=== PATIENT | female | born 1960 | race Caucasian/White ===

== ENCOUNTER 2021-02-04 16:14 | Inpatient (IN) ==
--- NOTE | 2021-02-04 16:23 | Emergency Department Note ---
Impression & Plan Elevated troponin Admit ED Provider Note HPI: The patient is a 60-year-old female who presents the emergency department with a chief complaint of myalgias and worsening shortness of breath over the past 12 to 14 days. Patient states she was positive for COVID-19 via a home test that she did on 24 January. She states that during this time. She has had generalized myalgias, states she feels short of breath at baseline. States that she has had some subjective fevers at home. She presents today to the emergency department due to worsening shortness of breath and myalgias. On my initial assessment the patient has some mild increased work of breathing, she is s aturating well on room air. She is mildly tachycardic but otherwise hemodynamically stable. ROS: -MSK: Myalgias -Pulmonary: Dyspnea, COVID-19 positive *10 point review systems was conducted and is otherwise negative unless stated above *Outpatient medications and allergy history reviewed PE: General: Morbidly obese, alert, NAD HEENT: Normocephalic, atraumatic, trachea midline Eyes: Extraocular eye movement is intact, no scleral erythema Pulmonary: Slightly diminished bilaterally without any wheezing or crackles Cardio: Mildly tachycardic rate with regular rhythm GI: Abdomen is soft, nontender : No suprapubic tenderness MSK: No evidence of trauma or malformation of the extremities, no edema Skin: No evidence of rash Neuro: Alert, no focal deficits Psychiatric: Cooperative bus monitor: Order placed, patient is noted to be in sinus rhythm on the monitor EKG: Time: 1720 Rate: 101 Rhythm: Sinus tachycardia Intervals: Within normal limits ST changes: No ST elevation Medical Decision Making: Patient presented to the emergency department with a chief complaint of shortness of breath. She states that she tested positive for COVID-19 about 11 days ago. She denies any chest pain. On arrival she has some diminished bilateral breath sounds but is saturating at 92% on room air, abdomen is soft and nontender, she exhibits some mild increased work of breathing. COVID-19 testing was repeated and is positive, CT angiography of the chest was performed and does not show any evidence of pulmonary embolism but does show evidence of viral pneumonia. Patient's oxygen saturations did dip down to 90% on room air with increased work of breathing therefore she was placed on nasal cannula oxygen, 2 L, with good improvement in her oxygen saturations. She was given a dose of Decadron in the ED. Troponin did result at 0.18, patient does not have any chest pain, EKG does not show any acute ischemic changes. I suspect this is demand ischemia related to the patient's increased work of breathing and hypoxia. I discussed above findings with the patient, she was g iven aspirin in the ED, she will be admitted to a telemetry bed for further management. Patient was in agreement to the above plan and she was admitted in stable condition. * Diagnosis: NSTEMI, COVID-19, acute respiratory failure secondary to COVID-19 pneumonia * Disposition: Admission * CRITICAL CARE TIME: 45min -Management of acute respiratory failure with oxygen saturations at 90% on room air with increased work of breathing requiring supplemental oxygen, management of elevated troponin/NSTEMI interpretation of diagnostic studies, time spent at the bedside, discussion with other healthcare providers Stanislaw Chu DO Emergency Medicine Past Med/Surg History Social History Smoking Status: Never smoker Preferred Language: Icelandic Feels Safe at Home: Yes Allergies Allergies Allergy/AdvReac Type Severity Reaction Status Date / Time cobalt Allergy Unknown rash Unverified 02/04/21 18:09 cyanocobalamin (vitamin B12) Allergy Unknown rash Unverified 02/04/21 18:09 nickel Allergy Unknown rash Unverified 02/04/21 18:09 Home Meds Home Medications Medication Instructions Recorded Confirmed atorvastatin 20 mg tablet 0 mg PO HS 02/04/21 02/04/21 fluticasone 250 mcg-salmeterol 50 1 inh INHALATION BID 02/04/21 02/04/21 mcg/dose blistr powdr for inhalation (Advair Diskus) hydrochlorothiazide 25 mg tablet 0 mg PO DAILY 02/04/21 02/04/21 levothyroxine 75 mcg tablet 75 mcg PO QAM 02/04/21 02/04/21 (Synthroid) metoprolol succinate 25 mg 0 mg PO DAILY 02/04/21 02/04/21 tablet,extended release 24 hr omeprazole 20 mg tablet,delayed 20 mg PO HS 02/04/21 02/04/21 release Results & Data (ED) Vital Signs Vital Signs - 24 hr 02/04/21 16:19 02/04/21 17:32 02/04/21 17:35 Temperature 36.1 C L Temperature Source Temporal Artery Scan Pulse Rate 111 H 100 H Pulse Rate [Apical] 74 Pulse Rate from SpO2 Sensor 100 H Pulse Rhythm Regular Pulse Rhythm [Apical] Regular Pulse Strength Normal Pulse Strength [Apical] Normal Respiratory Rate 20 19 18 Respiratory Effort / Characteristics Non-Labored Spontaneous Non-Labored Respiratory Depth Normal Normal Respiratory Pattern Regular Blood Pressure 120/76 Blood Pressure [Left Arm] 150/89 H Blood Pressure Mean 90 Blood Pressure Mean [Left Arm] 109 Blood Pressure Position Sitting Pulse Oximetry 92 90 91 Oxygen Delivery Method Room Air Room Air Oxygen Flow Rate Sepsis Recent Fever Within 48 Hours No Sepsis New/Unexplained Change in Mental Status No Sepsis Action Taken by Nursing No Action Required 02/04/21 17:50 02/04/21 18:00 02/04/21 18:07 Temperature Temperature Source Pulse Rate 94 H Pulse Rate [Apical] Pulse Rate from SpO2 Sensor 94 H Pulse Rhythm Pulse Rhythm [Apical] Pulse Strength Pulse Strength [Apical] Respiratory Rate 19 Respiratory Effort / Characteristics Non-Labored Respiratory Depth Normal Respiratory Pattern Regular Blood Pressure Blood Pressure [Left Arm] Blood Pressure Mean Blood Pressure Mean [Left Arm] Blood Pressure Position Pulse Oximetry 90 91 92 Oxygen Delivery Method Room Air Room Air Oxygen Flow Rate 0 Sepsis Recent Fever Within 48 Hours Sepsis New/Unexplained Change in Mental Status Sepsis Action Taken by Nursing 02/04/21 18:30 02/04/21 19:00 02/04/21 19:30 Temperature Temperature Source Pulse Rate 90 90 Pulse Rate [Apical] Pulse Rate from SpO2 Sensor 89 91 H 90 Pulse Rhythm Pulse Rhythm [Apical] Pulse Strength Pulse Strength [Apical] Respiratory Rate 19 22 Respiratory Effort / Characteristics Respiratory Depth Respiratory Pattern Blood Pressure 117/90 145/90 H Blood Pressure [Left Arm] Blood Pressure Mean 99 108 Blood Pressure Mean [Left Arm] Blood Pressure Position Pulse Oximetry 96 95 97 Oxygen Delivery Method Oxygen Flow Rate Sepsis Recent Fever Within 48 Hours Sepsis New/Unexplained Change in Mental Status Sepsis Action Taken by Nursing Laboratory Data Result diagrams: 02/04/21 17:30 02/04/21 17:30 Lab Results 02/04/21 02/04/21 02/04/21 Range/Units 17:30 17:30 17:30 WBC 5.20 (4.8-10.8) K/uL RBC 4.38 (4.2-5.4) M/uL Hgb 12.4 (12.0-16.0) g/dL Hct 38.3 (37-47) % MCV 87.4 (80-100) fL MCH 28.3 (25-34) pg MCHC 32.4 (32-36) g/dL RDW Std Deviation 46.5 H (36.4-46.3) fL RDW Coeff of Ta 14.4 (11.5-14.5) % Plt Count 195 (130-400) K/uL MPV 10.3 (7.4-10.4) fL Immature Gran % (Auto) 0.2 % Neut % (Auto) 83.2 % Lymph % (Auto) 10.8 % [place] % (Auto) 5.6 % Eos % (Auto) 0.0 % Baso % (Auto) 0.2 % Neut # (Auto) 4.33 (1.4-6.5) K/uL Lymph # (Auto) 0.56 L (1.2-3.4) K/uL [place] # (Auto) 0.29 (0.11-0.59) K/uL Eos # (Auto) 0.00 (0-0.5) K/uL Baso # (Auto) 0.01 (0-0.2) K/uL Immature Gran # (Auto) 0.01 (0.00-0.02) K/uL Sodium 136 (136-145) mmol/L Potassium 3.2 L (3.5-5.1) mmol/L Chloride 100 (98-107) mmol/L Carbon Dioxide 31 (21-32) mmol/L Anion Gap 5.0 (3-11) BUN 14 (7-18) mg/dl Creatinine 1.07 (0.6-1.2) mg/dl Est Cr Clr Drug Dosing Not Reportable Est GFR ( Amer) 65.3 ml/min Est GFR (Non-Af Amer) 56.4 ml/min BUN/Creatinine Ratio 12.7 (10-20) Glucose 129 H (70-99) mg/dl Calcium 8.4 L (8.5-10.1) mg/dl Total Bilirubin 0.8 (0.2-1) mg/dl AST 54 H (15-37) U/L ALT 35 (12-78) U/L Alkaline Phosphatase 84 (45-117) U/L Troponin I 0.180 H* (0-0.045) ng/ml Total Protein 7.6 (6.4-8.2) gm/dl Albumin 2.8 L (3.4-5.0) gm/dl Globulin 4.8 H (2.5-4.0) gm/dl Albumin/Globulin Ratio 0.6 L (0.9-2) COVID-19 Eval Order Covid19 at [facility] SARS-CoV-2 (PCR) (Negative) 02/04/21 Range/Units 17:30 WBC (4.8-10.8) K/uL RBC (4.2-5.4) M/uL Hgb (12.0-16.0) g/dL Hct (37-47) % MCV (80-100) fL MCH (25-34) pg MCHC (32-36) g/dL RDW Std Deviation (36.4-46.3) fL RDW Coeff of Ta (11.5-14.5) % Plt Count (130-400) K/uL MPV (7.4-10.4) fL Immature Gran % (Auto) % Neut % (Auto) % Lymph % (Auto) % [place] % (Auto) % Eos % (Auto) % Baso % (Auto) % Neut # (Auto) (1.4-6.5) K/uL Lymph # (Auto) (1.2-3.4) K/uL [place] # (Auto) (0.11-0.59) K/uL Eos # (Auto) (0-0.5) K/uL Baso # (Auto) (0-0.2) K/uL Immature Gran # (Auto) (0.00-0.02) K/uL Sodium (136-145) mmol/L Potassium (3.5-5.1) mmol/L Chloride (98-107) mmol/L Carbon Dioxide (21-32) mmol/L Anion Gap (3-11) BUN (7-18) mg/dl Creatinine (0.6-1.2) mg/dl Est Cr Clr Drug Dosing Est GFR ( Amer) ml/min Est GFR (Non-Af Amer) ml/min BUN/Creatinine Ratio (10-20) Glucose (70-99) mg/dl Calcium (8.5-10.1) mg/dl Total Bilirubin (0.2-1) mg/dl AST (15-37) U/L ALT (12-78) U/L Alkaline Phosphatase (45-117) U/L Troponin I (0-0.045) ng/ml Total Protein (6.4-8.2) gm/dl Albumin (3.4-5.0) gm/dl Globulin (2.5-4.0) gm/dl Albumin/Globulin Ratio (0.9-2) COVID-19 Eval Order SARS-CoV-2 (PCR) POSITIVE A* (Negative) Administered Medications Discontinued Medications Aspirin (Aspirin Chew 324 Mg) 324 mg PO NOW STA Stop: 02/04/21 18:07 Last Admin: 02/04/21 18:23 Dose: 324 mg Documented by: [id number] Dexamethasone Sodium Phosphate (DexamethasonePf 10 Mg/Ml Vial) 10 mg IV NOW ONE Stop: 02/04/21 16:27 Last Admin: 02/04/21 17:26 Dose: 10 mg Documented by: [id number] Sodium Chloride (Nss 1000ml) 1,000 mls @ 999 mls/hr IV .Q1H1M VEL Stop: 02/04/21 17:30 Last Infusion: 02/04/21 18:27 Dose: 0 mls/hr Documented by: [id number] Admin: 02/04/21 17:26 Dose: 999 mls/hr Documented by: [id number] Ioversol (Optiray 320 125ml) 119 ml IV ONCE ONE Stop: 02/04/21 18:59 Last Admin: 02/04/21 18:58 Dose: 119 ml Documented by: [id number] Potassium Chloride (Potassium Chloride Crtab 20 Meq Tabcr) 40 meq PO NOW STA Stop: 02/04/21 18:10 Last Admin: 02/04/21 18:22 Dose: 40 meq Documented by: [id number] Imaging Data Radiologist's Impression: Chest X-Ray 02/04/21 16:26 XR chest 1V portable CLINICAL HISTORY: Dyspnea COMPARISON STUDY: No previous studies for comparison. FINDINGS: Lung volumes are diminished. No pneumothorax or pleural effusion is present. Moderate bilateral airspace opacities are present. There is mild enlargement of the cardiac silhouette. IMPRESSION: 1. Moderate bilateral airspace opacities suggestive of viral pneumonia. Radiographic follow-up to ensure resolution is recommended. 2. Low lung volumes. ACT 112: Negative or not required by law. Electronically signed by: Obey Bond M.D. 02/04/2021 4:58 PM Chest CTA 02/04/21 18:07 CT angio chest w con CLINICAL HISTORY: Shortness of breath, cough and Covid. Evaluate for pulmonary embolus. COMPARISON STUDY: Chest radiograph performed earlier today. TECHNIQUE: Helical axial images of the chest were obtained following intravenous injection 119 cc Optiray 320 IV. Sagittal and coronal reconstructions were view ed as well as maximal intensity projections on an independent 3-D workstation. Automated exposure control was utilized for the study. A dose lowering technique was utilized adhering to the principles of ALARA. FINDINGS: No pulmonary emboli are identified. There is no thoracic aortic dissection. Mild cardiomegaly is noted. No pericardial effusion is present. There are multiple mildly enlarged mediastinal and bilateral hilar lymph nodes. Moderate multifocal groundglass opacities throughout the lungs are noted. There is subpleural right lower lobe consolidation. Central airways are patent. No pneumothorax or pleural effusion is noted. No acute fracture or suspicious l esion is identified within visualized portions of the bony thorax. No significant abnormalities are identified within visualized portions of the upper abdomen. IMPRESSION: 1. No pulmonary emboli identified. 2. Multifocal groundglass opacities throughout the lungs and subpleural right lower lobe consolidation consistent with viral pneumonia. 3. Mildly enlarged mediastinal and bilateral hilar lymph nodes which are likely reactive. 4. Cardiomegaly. ACT 112: Negative or not required by law. Electronically signed by: Obey Bond M.D. 02/04/2021 7:13 PM Discharge Plan Visit Data Chief Complaint: Respiratory Problems Stated Complaint: COVID POSITIVE LOW OXYGEN ED Provider: Stanislaw hCu Discharge Problem: Elevated troponin Forms Stand Alone Forms: My [facility] Prescriptions Prescriptions: No Action fluticasone propion-salmeterol [Advair Diskus] 250-50 mcg/dose Blister With Device 1 inh INHALATION BID RF: 0 atorvastatin 20 mg Tablet 0 mg PO HS RF: 0 levothyroxine [Synthroid] 75 mcg Tablet 75 mcg PO QAM RF: 0 hydrochlorothiazide 25 mg Tablet 0 mg PO DAILY RF: 0 metoprolol succinate 25 mg Tablet Extended Release 24 Hr 0 mg PO DAILY RF: 0 omeprazole 20 mg Tablet,Delayed Release (Dr/Ec) 20 mg PO HS RF: 0 Referrals Referrals: Jay Magana II, MD [Physician] -
[2021-02-04] MEDS ORDERED: dexAMETHasone**PF** 10 MG/ML VIAL IV ONE (16:26)
[2021-02-04] MEDS ORDERED: SODIUM CHLORIDE 0.9% 1000ML 1,000 ML IV SCH (16:30)
--- NOTE | 2021-02-04 16:59 | XRay Report ---
XR chest 1V portable CLINICAL HISTORY: Dyspnea COMPARISON STUDY: No previous studies for comparison. FINDINGS: Lung volumes are diminished. No pneumothorax or pleural effusion is present. Moderate bilat eral airspace opacities are present. There is mild enlargement of the cardiac silhouette. IMPRESSION: 1. Moderate bilateral airspace opacities suggestive of viral pneumonia. Radiographic follow-up to ens ure resolution is recommended. 2. Low lung volumes. ACT 112: Negative or not required by law. Electronically signed by: Obey Bond M.D. 02/04/2021 4:58 PM
[2021-02-04 17:39] LABS: Basophils # (auto) 0.01 K/uL (0-0.2); Basophils % (auto) 0.2 %; Hematocrit (blood only) 38.3 % (37-47); Hemoglobin 12.4 g/dL (12.0-16.0); Immature Granulocytes # (auto) 0.01 K/uL (0.00-0.02); Immature Granulocytes % (auto) 0.2 %; Lymphocytes # (auto) 0.56 K/uL (1.2-3.4); Lymphocytes % (auto) 10.8 %; Mean Corpuscular Hemoglobin 28.3 pg (25-34); Mean Corpuscular Hgb Conc 32.4 g/dL (32-36); Mean Corpuscular Volume 87.4 fL (80-100); Mean Platelet Volume 10.3 fL (7.4-10.4); Monocytes # (auto) 0.29 K/uL (0.11-0.59); Monocytes % (auto) 5.6 %; Neutrophils # (auto) 4.33 K/uL (1.4-6.5); Neutrophils % (auto) 83.2 %; Platelet Count 195 K/uL (130-400); RDW Coefficient of Variation 14.4 % (11.5-14.5); RDW Standard Deviation 46.5 fL (36.4-46.3); Red Blood Count 4.38 M/uL (4.2-5.4)
[2021-02-04 17:56] LABS: Alanine Aminotransferase 35 U/L (12-78); Albumin Level 2.8 gm/dl (3.4-5.0); Aspartate Aminotransferase 54 U/L (15-37); BUN Creatinine Ratio 12.7 (10-20); Blood Urea Nitrogen 14 mg/dl (7-18); Calcium 8.4 mg/dl (8.5-10.1); Carbon Dioxide 31 mmol/L (21-32); Chloride 100 mmol/L (98-107); Est GFR (African American) 65.3 ml/min; Est GFR (Non-African American) 56.4 ml/min; Glucose 129 mg/dl (70-99); Potassium 3.2 mmol/L (3.5-5.1); Sodium 136 mmol/L (136-145)
[2021-02-04 18:05] LABS: Albumin Globulin Ratio 0.6 (0.9-2); Alkaline Phosphatase 84 U/L (45-117); Bilirubin,Total 0.8 mg/dl (0.2-1); Globulin 4.8 gm/dl (2.5-4.0); Total Protein 7.6 gm/dl (6.4-8.2)
[2021-02-04] MEDS ORDERED: ASPIRIN CHEW 324 MG PO STA (18:06)
[2021-02-04] MEDS ORDERED: POTASSIUM CHLORIDE CRTAB 20 MEQ TABCR PO STA (18:09)
[2021-02-04] MEDS ORDERED: OPTIRAY 320 125ml IV ONE (18:58)
--- NOTE | 2021-02-04 19:15 | CT Scan Report ---
CT angio chest w con CLINICAL HISTORY: Shortness of breath, cough and Covid. Evaluate for pulmonary embolus. COMPARISON STUDY: Chest radiograph performed earlier today. TECHNIQUE: Helical axial images of the chest were obtained following intravenous injection 119 cc Opt iray 320 IV. Sagittal and coronal reconstructions were viewed as well as maximal intensity projection s on an independent 3-D workstation. Automated exposure control was utilized for the study. A dose l owering technique was utilized adhering to the principles of ALARA. FINDINGS: No pulmonary emboli are identified. There is no thoracic aortic dissection. Mild cardiomega ly is noted. No pericardial effusion is present. There are multiple mildly enlarged mediastinal and b ilateral hilar lymph nodes. Moderate multifocal groundglass opacities throughout the lungs are noted. There is subpleural right lower lobe consolidation. Central airways are patent. No pneumothorax or p leural effusion is noted. No acute fracture or suspicious lesion is identified within visualized port ions of the bony thorax. No significant abnormalities are identified within visualized portions of th e upper abdomen. IMPRESSION: 1. No pulmonary emboli identified. 2. Multifocal groundglass opacities throughout the lungs and subpleural right lower lobe consolidatio n consistent with viral pneumonia. 3. Mildly enlarged mediastinal and bilateral hilar lymph nodes which are likely reactive. 4. Cardiomegaly. ACT 112: Negative or not required by law. Electronically signed by: Obey Bond M.D. 02/04/2021 7:13 PM
--- NOTE | 2021-02-04 20:33 | History & Physical Report ---
Date of Service February 04, 2021 Assessment & Plan (1) COVID: Plan: Day 12 of COVID- hopefully she should be on the up-trend towards recovery - Minimal oxygen support at this time- titrate to keep SPO2 >92% - NC/HFNC/CPAP/BIPAP/INTUBATION - Self proning and rotation therapy - Continue Decadron 6mg IV daily x 10 days - CRP-Pending, ESR-85, PCT-Pending, Ferritin-Pending, LDH- 417, Fibrinogen- 530 - Lovenox 40mg SQ BID for VTE prophylaxis - Support hydration with LR 80ml/hr x 1 liter (2) Elevated troponin: Plan: Elevated Troponin likely secondary to demand from hypoxia and COVID 19 - no dynamic ECG changes noted - Patient reports stress test ~ 2 years ago at [place] that was negative - Follow Troponin and ECG q6 hours - Continue BB, Statin, (3) Hypoxia: Plan: Hypoxia without respiratory failure secondary to COVID 19 - As above - oxygen titraton - SUSAN (4) HTN (hypertension): Plan: As above - Hold HCTZ until ensure euvolemia (5) HLD (hyperlipidemia): Plan: Continue statin (6) Asthma: Plan: Continue Advair- patient doesn't take secondary to difficulty with inhaler - Add Albuterol (7) Hypothyroidism: Plan: Continue synthroid 75mcg daily History of Present Illness Primary Care Provider: NO PCP 60 YOF with past medical of: HTN, HLD, DMII, Asthma, previous smoker, hypothyroidism, GERD. Does not routinely seek medical care. Patient comes in today for feeling run down, tired, loss of appetite and myalgias. She also came in as her daughter reports that her home SPO2 monitor was 80% at home. The patient started feeling ill on and home positive COVID test on . She is dyspneic with SPO2 89% on room air. She has remained weak and fatigued and decrease appetite for the past week as well as decrease fluid in take. In the ER she had routine labs draw to include troponin I, CXR and CTA of the chest. Which shows bilateral ground glass opacities, no PE. Her labs revealed mild hypokalemia, and an elevated Troponin I of 0.180. ECG without dynamic changes and patient denies any chest pain or palpitations. Patient will be admitted for COVID , continue Decadron, and one liter of LR overnight. Inflammatory markers are pending. Patient is not vaccinated and her COVID test on admission is: POSITIVE Allergies Allergy/AdvReac Type Severity Reaction Status Date / Time cobalt Allergy Unknown rash Unverified 02/04/21 18:09 cyanocobalamin (vitamin B12) Allergy Unknown rash Unverified 02/04/21 18:09 nickel Allergy Unknown rash Unverified 02/04/21 18:09 Home Medications Medication Instructions Recorded Confirmed Type atorvastatin 20 mg tablet 0 mg PO HS 02/04/21 02/04/21 History fluticasone 250 mcg-salmeterol 50 1 inh INHALATION BID 02/04/21 02/04/21 History mcg/dose blistr powdr for inhalation (Advair Diskus) hydrochlorothiazide 25 mg tablet 0 mg PO DAILY 02/04/21 02/04/21 History levothyroxine 75 mcg tablet 75 mcg PO QAM 02/04/21 02/04/21 History (Synthroid) metoprolol succinate 25 mg 0 mg PO DAILY 02/04/21 02/04/21 History tablet,extended release 24 hr omeprazole 20 mg tablet,delayed 20 mg PO HS 02/04/21 02/04/21 History release Past Med/Surg History Medical History (Updated 02/04/21 @ 21:21 by SAM Schaeffer) HLD (hyperlipidemia) HTN (hypertension) Lumbago Lumbar facet joint syndrome Surgical History (Updated 02/04/21 @ 20:59 by SAM Schaeffer) H/O tubal ligation History of reversal of tubal ligation Social History Smoking Status: Former smoker Cigarettes Per Day: 1; Smoking End Date: 1999; Second Hand Exposure: No; Do You Dip or Chew Tobacco: No; Tobacco Cessation Education Requested by Patient: No Hx Alcohol Use: No Hx Substance Use: No Preferred Language: Iraqi Communication Ability: Effective [place] Required: No Beliefs That Will Affect Care: None Current Living Situation: Spouse and Family Current Living Situation Comment: and son Other Information That Helps Us Care for You: No Feels Safe at Home: Yes Safety Concerns: Feels Safe At This Time Assistive Devices: Glasses and Oxygen - Continuous Review of Systems Review of Systems: REVIEW OF SYSTEMS: Constitutional: (+) fever, sweats or chills Eyes: No diplopia, no worsening or blurred vision ENT: normal hearing, no trouble swallowing Respiratory: (+) cough, dyspnea at rest or on exertion Cardiovascular: No chest pain, tightness or palpitations Abdomen: (+) loss of appetite, pain, nausea, vomiting, diarrhea or constipation Musculoskeletal: (+) joint pain, calf pain, swelling Neurologic: No weakness, numbness/tingling, or balance problems Psychiatric: No anxiety or depression Skin: No rash or itch Physical Exam Physical Exam: PHYSICAL EXAM: General: awake, alert, anxious Head: Normocephalic, atraumatic ENT: PERRL, EOMI, no pharyngeal exudate, mucous membranes dry Neuro: AAO x 3, speech clear and appropriate, strength intact bilaterally 5/5, sensation intact and equal all extremities and dermatomes, no pronator drift Chest: equal rise and fall of the chest, inspiratory wheeze with scattered crackles, on 2LNC Cardiac: Regular rate and rhythm, telemetry reviewed, skin warm dry, cap refill <3 seconds, peripheral pulses +2 no JVD, no murmur no edema GI: NABS x 4 quadrants, soft, nontender to palpation, no rebound, guarding or tenderness : Spontaneously voiding, no pain, no CVA tenderness, Extremities: Normal inspection, no peripheral edema or erythema, calfs nontender to palpation Psych: Normal mood and affect Skin: no rash or erythema Results & Data Results & Data ([facility]) Vital Signs (Past 12 Hours) Vital Signs Temp Pulse Pulse Resp BP BP Pulse Ox 02/04/21 19:30 90 22 145/90 H 97 02/04/21 19:00 117/90 95 02/04/21 18:30 90 19 96 02/04/21 18:07 92 02/04/21 18:00 94 H 19 91 02/04/21 17:50 90 02/04/21 17:35 74 18 150/89 H 91 02/04/21 17:32 100 H 19 90 02/04/21 16:19 36.1 C L 111 H 20 120/76 92 Laboratory Results Abnormal lab results 02/04/21 02/04/21 02/04/21 Range/Units 17:30 17:30 17:30 RDW Std Deviation 46.5 H (36.4-46.3) fL Lymph # (Auto) 0.56 L (1.2-3.4) K/uL Potassium 3.2 L (3.5-5.1) mmol/L Glucose 129 H (70-99) mg/dl Calcium 8.4 L (8.5-10.1) mg/dl AST 54 H (15-37) U/L Troponin I 0.180 H* (0-0.045) ng/ml Albumin 2.8 L (3.4-5.0) gm/dl Globulin 4.8 H (2.5-4.0) gm/dl Albumin/Globulin Ratio 0.6 L (0.9-2) SARS-CoV-2 (PCR) POSITIVE A* (Negative) Diagnostic Findings Chest X-Ray 02/04/21 16:26 XR chest 1V portable CLINICAL HISTORY: Dyspnea COMPARISON STUDY: No previous studies for comparison. FINDINGS: Lung volumes are diminished. No pneumothorax or pleural effusion is present. Moderate bilateral airspace opacities are present. There is mild enlargement of the cardiac silhouette. IMPRESSION: 1. Moderate bilateral airspace opacities suggestive of viral pneumonia. Radiographic follow-up to ensure resolution is recommended. 2. Low lung volumes. ACT 112: Negative or not required by law. Electronically signed by: Obey Bond M.D. 02/04/2021 4:58 PM Chest CTA 02/04/21 18:07 CT angio chest w con CLINICAL HISTORY: Shortness of breath, cough and Covid. Evaluate for pulmonary embolus. COMPARISON STUDY: Chest radiograph performed earlier today. TECHNIQUE: Helical axial images of the chest were obtained following intravenous injection 119 cc Optiray 320 IV. Sagittal and coronal reconstructions were viewed as well as maximal intensity projections on an independent 3-D workstation. Automated exposure control was utilized for the study. A dose lowering technique was utilized adhering to the principles of ALARA. FINDINGS: No pulmonary emboli are identified. There is no thoracic aortic dissection. Mild cardiomegaly is noted. No pericardial effusion is present. There are multiple mildly enlarged mediastinal and bilateral hilar lymph nodes. Moderate multifocal groundglass opacities throughout the lungs are noted. There is subpleural right lower lobe consolidation. Central airways are patent. No pneumothorax or pleural effusion is noted. No acute fracture or suspicious lesion is identified within visualized portions of the bony thorax. No significant abnormalities are identified within visualized portions of the upper abdomen. IMPRESSION: 1. No pulmonary emboli identified. 2. Multifocal groundglass opacities throughout the lungs and subpleural right lower lobe consolidation consistent with viral pneumonia. 3. Mildly enlarged mediastinal and bilateral hilar lymph nodes which are likely reactive. 4. Cardiomegaly. ACT 112: Negative or not required by law. Electronically signed by: Obey Bond M.D. 02/04/2021 7:13 PM Medications Administered Discontinued Medications Aspirin (Aspirin Chew 324 Mg) 324 mg PO NOW STA Stop: 02/04/21 18:07 Last Admin: 02/04/21 18:23 Dose: 324 mg Documented by: [id number] Dexamethasone Sodium Phosphate (DexamethasonePf 10 Mg/Ml Vial) 10 mg IV NOW ONE Stop: 02/04/21 16:27 Last Admin: 02/04/21 17:26 Dose: 10 mg Documented by: [id number] Sodium Chloride (Nss 1000ml) 1,000 mls @ 999 mls/hr IV .Q1H1M VEL Stop: 02/04/21 17:30 Last Infusion: 02/04/21 18:27 Dose: 0 mls/hr Documented by: [id number] Admin: 02/04/21 17:26 Dose: 999 mls/hr Documented by: [id number] Ioversol (Optiray 320 125ml) 119 ml IV ONCE ONE Stop: 02/04/21 18:59 Last Admin: 02/04/21 18:58 Dose: 119 ml Documented by: [id number] Potassium Chloride (Potassium Chloride Crtab 20 Meq Tabcr) 40 meq PO NOW STA Stop: 02/04/21 18:10 Last Admin: 02/04/21 18:22 Dose: 40 meq Documented by: [id number] Home Medications atorvastatin 20 mg tablet 0 mg PO HS 02/04/21 [History Confirmed 02/04/21] fluticasone 250 mcg-salmeterol 50 mcg/dose blistr powdr for inhalation (Advair Diskus) 1 inh INHALATION BID 02/04/21 [History Confirmed 02/04/21] hydrochlorothiazide 25 mg tablet 0 mg PO DAILY 02/04/21 [History Confirmed 02/04/21] levothyroxine 75 mcg tablet (Synthroid) 75 mcg PO QAM 02/04/21 [History Confirmed 02/04/21] metoprolol succinate 25 mg tablet,extended release 24 hr 0 mg PO DAILY 02/04/21 [History Confirmed 02/04/21] omeprazole 20 mg tablet,delayed release 20 mg PO HS 02/04/21 [History Confirmed 02/04/21] ECG Additional Comments: Sinus tachycardia with Premature supraventricular complexes Nonspecific ST and T wave abnormality Abnormal ECG No previous ECGs available Code Status & VTE Plan Code Status CODE: FULL VTE: SCDS, Lovenox 40 mg Sub Q BID Supervising Physician Co-Signing Physician Notes Attending addendum: I have physically seen this patient, have supervised the DAREN's activities, and agree with the H&P unless as otherwise noted. Assessment and Plan: COVID-19 pneumonia with hypoxia- Dexamethasone 6 mg IV daily Lovenox 40 mg subcu twice daily Duonebs every 4 hours while awake and every 2 hours when necessary. Azithromycin 500 mg IV daily Titrate oxygen to keep pulse ox greater than or equal to 92 Follow serial laboratories Elevated troponin/hypertension- The patient will be admitted to telemetry for serial cardiac enzymes, serial EKG's, cardiac rhythm monitoring and a 2-D echocardiogram with Dopplers. Likely supply demand mismatch type II Continue metoprolol succinate. Hold HCTZ Remaining orders and notations as noted PG Care Time/CCT Total # of Minutes Spent Total Time Spent with Patient: Total time spent is greater than 50% in coordination of care (as documented) at patient's floor/unit and/or counseling patient: Coding Level of Care Code 22113 Initial Inpt Care Lvl 3 Diagnoses Asthma J45.909 Hypothyroidism E03.9 HLD (hyperlipidemia) E78.5 HTN (hypertension) I10 Elevated troponin R77.8 COVID U07.1 Hypoxia R09.02
[2021-02-04 21:13] LABS: Fibrinogen 530 mg/dl (184-400)
[2021-02-04 21:19] LABS: C Reactive Protein 10.5 mg/dl (0-0.29); Ferritin 413.2 ng/ml (8-388)
[2021-02-04] MEDS ORDERED: DEXTROSE 50% 50 ML SYRINGE IV PRN (22:39)
[2021-02-04] MEDS ORDERED: GLUCOSE 40% GEL 15 GM TUBE PO PRN (22:39)
[2021-02-04] MEDS ORDERED: ONDANSETRON INJ 2 MG/ML 2 ML VIAL IV PRN (22:39)
[2021-02-04] MEDS ORDERED: CARBOHYDRATES FOR HYPOGLYCEMIA PO PRN (22:39)
[2021-02-04] MEDS ORDERED: GLUCAGON FOR INJ 1 MG VIAL SQ PRN (22:39)
[2021-02-04] MEDS ORDERED: GLUCOSE 10 TABS/TUBE PO PRN (22:39)
[2021-02-04] MEDS ORDERED: LACTATED RINGER'S 1,000 ML IV ONE (23:00)
[2021-02-04] MEDS ORDERED: POTASSIUM PHOS 3 MMOL/1 ML INFUSION IV STA (23:20)
[2021-02-04] MEDS ORDERED: POTASSIUM PHOSPHATE 30 MMOL in SODIUM CHLORIDE 0.9% 500 ML IV ONE (23:30)
[2021-02-04] MEDS: INSULIN ASPART 100 UNITS/ML 3 ML PEN SC SCH (23:39)
[2021-02-05] MEDS: ATORVASTATIN 10 MG TAB PO SCH ×2 (00:10→20:41)
[2021-02-05] MEDS: ENOXAPARIN INJ 40 MG/0.4 ML SYR SQ SCH ×3 (00:10→20:31)
[2021-02-05] MEDS: PANTOprazole 40 MG TAB PO SCH ×2 (00:10→20:34)
[2021-02-05] MEDS: busPIRone 5 MG TAB PO PRN ×2 (00:51→20:41)
[2021-02-05] MEDS: LEVOTHYROXINE SODIUM 75 MCG TABLET PO SCH (06:01)
[2021-02-05] MEDS: dexAMETHasone 6 MG in SYRINGE 0 ML IV SCH (08:19)
[2021-02-05] MEDS: FLUTICASONE/VILANTEROL 200/25MCG 14 PUFFS/INHALER INH SCH (08:20)
[2021-02-05] MEDS: METOPROLOL SUCC 25MG EXT REL TAB PO SCH (08:21)
[2021-02-05] MEDS: INSULIN ASPART 100 UNITS/ML 3 ML PEN SC SCH ×4 (08:26→21:01)
[2021-02-05 09:34] LABS: Appearance Urine Clear (Clear); Bacteria Urine Automated Negative (Negative); Bilirubin Urine Negative (Negative); Blood Urine Negative (Negative); Color Urine Dark Yellow; Epithelial Cell Urine Auto >30 /lpf (0-5); Glucose Urine UA Negative (Negative); Ketones Urine 1+ (Negative); Leukocyte Esterase Urine Negative (Negative); Nitrite Urine Negative (Negative); Protein Urine 1+ (Negative); RBC Urine Automated 0-4 /hpf (0-4); Specific Gravity Urine 1.039 (1.000-1.030); Urobilinogen Urine Positive (Negative)
--- NOTE | 2021-02-05 14:43 | Hospitalist Progress Note ---
Date of Service February 05, 2021 Assessment & Plan (1) Pneumonia due to COVID-19 virus: Plan: moderate. day #2 dexamethasone 6mg IV daily. presented well over 10 days into her illness - thus, Remdesivir deferred. DVT proph - lovenox BID. CRP noted; repeat in am. patient with poor air movement on exam - add scheduled bronchodilators (does have asthma); incentive laurie/flutter ordered; proning and side positioning discussed & encouraged. (2) Acute respiratory failure with hypoxia: Plan: 2nd to #1. no evidence of complicating PE, CHF, or bacterial superinfection. plans as above in #1. (3) Hypophosphatemia: Plan: s/p IV replacement still low - thus, add k-phos neutral repeat level in 2-3 days (4) Type 2 diabetes mellitus: Plan: a1c pending metformin on hold novolog SSI add basal if needed (5) HTN (hypertension): Plan: hold BB as BPs are low-normal (6) HLD (hyperlipidemia): Plan: CPK, AST, ALT acceptable statin (7) Elevated troponin: Plan: 2nd to myocardial demand ischemia no evidence of ACS no chest symptoms since admission admission EKG acceptable (8) Asthma: Plan: long-standing add scheduled bronchodilators pulmonary toilet steroids (9) Hypothyroidism: Plan: check TSH in am synthroid adjust as needed (10) DVT prophylaxis: Plan: lovenox 40 BID Plan: extensively updated her daughter, Meenakshi Victoria, who is an RN at [facility] on med-surg floor questions answered Admission and Anticipated Discharge Date Admission Date: February 04, 2021 Subjective pt's main complaint was that of fatigue simply no energy poor appetite no significant cough, however mild MORILLO with walking to bathroom she has spent most of the day today in bed except for bathroom trips she is about 12-13 days into her illness tele overnight wnl denies cp, abd pain, N/V was not vaccinated against COVID-19 had had myalgias - severe - earlier in illness course -- now resolved we discussed proning/side positioning/pulmonary toilet extensively while I was at bedside Review of Systems Review of Systems: gen - no fevers, no chills CV - no cp pulm - no sputum, minimal cough GI - no N/V/abd pain musculo - no arthralgias/myalgias Physical Exam Physical Exam: gen - weak, tired-appearing, but no distress; pleasant mouth - MM dry neck - no JVD heart - RRR, s1 s2, no murmur lungs - fine bibasilar rales, no wheeze, very poor air movement b/l abd - soft NT ND BS+ ext - no edema, pulses 2+ b/l psych - a/o x 3 Results & Data Results & Data ([facility]) Vital Signs (Past 12 Hours) Vital Signs Temp Pulse Pulse Resp BP Pulse Ox 02/05/21 11:00 36.5 C 67 16 101/68 92 02/05/21 08:28 36.6 C 64 16 111/74 94 02/05/21 07:32 63 02/05/21 06:07 36.4 C L 70 18 113/76 93 02/05/21 04:12 79 02/05/21 03:23 36.6 C 75 20 97/62 L 90 Laboratory Results cbc acceptable BMP - this afternoon - acceptable phos 1.9 procal neg CRP 10.5 PG Care Time/CCT Total # of Minutes Spent Total Time Spent with Patient: Total time spent is greater than 50% in coordination of care (as documented) at patient's floor/unit and/or counseling patient: Coding Level of Care Code 39163 Subseq Hosp Care Lvl 3 Diagnoses Pneumonia due to COVID-19 virus U07.1; J12.82 Acute respiratory failure with hypoxia J96.01 Hypophosphatemia E83.39 Type 2 diabetes mellitus E11.9 HTN (hypertension) I10 HLD (hyperlipidemia) E78.5 Elevated troponin R77.8 Asthma J45.909 Hypothyroidism E03.9 DVT prophylaxis Z29.9
[2021-02-05 15:03] LABS: Hematocrit (blood only) 35.7 % (37-47); Hemoglobin 11.5 g/dL (12.0-16.0); Immature Granulocytes # (auto) 0.02 K/uL (0.00-0.02); Immature Granulocytes % (auto) 0.3 %; Lymphocytes # (auto) 0.42 K/uL (1.2-3.4); Lymphocytes % (auto) 7.3 %; Mean Corpuscular Hemoglobin 27.8 pg (25-34); Mean Corpuscular Hgb Conc 32.2 g/dL (32-36); Mean Corpuscular Volume 86.2 fL (80-100); Mean Platelet Volume 9.9 fL (7.4-10.4); Monocytes # (auto) 0.15 K/uL (0.11-0.59); Monocytes % (auto) 2.6 %; Neutrophils % (auto) 89.8 %; Platelet Count 213 K/uL (130-400); RDW Coefficient of Variation 14.6 % (11.5-14.5); RDW Standard Deviation 46.4 fL (36.4-46.3); Red Blood Count 4.14 M/uL (4.2-5.4); White Blood Count 5.79 K/uL (4.8-10.8)
[2021-02-05 15:20] LABS: BUN Creatinine Ratio 17.1 (10-20); Calcium 8.1 mg/dl (8.5-10.1); Creatinine Clr Calc Pharmacy 79.5 ml/min; Est GFR (African American) 83.9 ml/min; Est GFR (Non-African American) 72.4 ml/min; Magnesium 2.4 mg/dl (1.8-2.4); Potassium 3.8 mmol/L (3.5-5.1)
[2021-02-05 15:24] LABS: Phosphorus 1.9 mg/dl (2.5-4.9)
[2021-02-05] MEDS ORDERED: ALBUTEROL HFA 8 GM INHALER INH SCH ×2 (17:00→19:00)
[2021-02-05] MEDS: ALBUTEROL HFA 8 GM INHALER INH SCH (20:06)
[2021-02-05] MEDS: MELATONIN 3 MG TAB PO SCH (20:31)
[2021-02-05] MEDS: POT PHOSPHATE MONOBASIC W/ SOD TAB PO SCH (20:35)
[2021-02-06] MEDS: LEVOTHYROXINE SODIUM 75 MCG TABLET PO SCH (05:39)
--- NOTE | 2021-02-06 05:41 | Electrocardiogram Report ---
Test Reason : Blood Pressure : / mmHG Vent. Rate : 101 BPM Atrial Rate : 101 BPM P-R Int : 146 ms QRS Dur : 078 ms QT Int : 328 ms P-R-T Axes : 042 -18 006 degrees QTc Int : 425 ms Poor data quality, interpretation may be adversely affected Sinus tachycardia with Premature supraventricular complexes Nonspecific ST and T wave abnormality Abnormal ECG No previous ECGs available Confirmed by Varun Oh ([id number]) on 02/06/2021 5:41:07 AM Referred By: REFERRED SELF Confirmed By:Varun Oh
[2021-02-06 07:01] LABS: Estimated Average Glucose 166 mg/dl; Hemoglobin A1C 7.4 % (4.5-5.6)
[2021-02-06 07:26] LABS: BUN Creatinine Ratio 20.3 (10-20); Calcium 8.1 mg/dl (8.5-10.1); Creatinine Clr Calc Pharmacy 85.9 ml/min; Est GFR (African American) 90.1 ml/min; Est GFR (Non-African American) 77.8 ml/min; Potassium 3.3 mmol/L (3.5-5.1)
[2021-02-06 07:36] LABS: C Reactive Protein 4.95 mg/dl (0-0.29); Thyroid Stimulating Hormone 15.1 uIu/ml (0.300-4.500)
[2021-02-06] MEDS: ALBUTEROL HFA 8 GM INHALER INH SCH ×4 (07:42→18:19)
[2021-02-06] MEDS: INSULIN ASPART 100 UNITS/ML 3 ML PEN SC SCH ×4 (08:15→21:58)
[2021-02-06] MEDS: dexAMETHasone 6 MG in SYRINGE 0 ML IV SCH (08:15)
[2021-02-06] MEDS: ENOXAPARIN INJ 40 MG/0.4 ML SYR SQ SCH ×2 (08:16→21:07)
[2021-02-06] MEDS: FLUTICASONE/VILANTEROL 200/25MCG 14 PUFFS/INHALER INH SCH (08:17)
[2021-02-06] MEDS: POT PHOSPHATE MONOBASIC W/ SOD TAB PO SCH ×4 (08:18→21:08)
[2021-02-06] MEDS: POTASSIUM CHLORIDE CRTAB 20 MEQ TABCR PO SCH ×2 (10:54→21:10)
--- NOTE | 2021-02-06 13:50 | Hospitalist Progress Note ---
Date of Service February 06, 2021 Assessment & Plan (1) Pneumonia due to COVID-19 virus: Plan: Day #3 dexamethasone 6mg IV daily. Presented well over 10 days into her illness - thus, Remdesivir deferred. DVT proph - Lovenox BID. CRP downtrending - does not meet criteria for baricitinib Proning and side positioning again discussed & encouraged. (2) Acute respiratory failure with hypoxia: Plan: As above. Aim O2 sats > 90%. Concerning increasing O2 requirement but clinically otherwise stable. (3) Type 2 diabetes mellitus: Plan: HbA1C 7.4 metformin on hold - can resume on discharge Novolog SSI (7 units yesterday) BSG 178-177 - basal dosing deferred given glucose 96 this morning (4) Hypophosphatemia: Plan: s/p IV replacement still low - thus, add k-phos neutral Repeat level in AM (5) HTN (hypertension): Plan: Restart metoprolol succinate to avoid rebound tachycardia (6) HLD (hyperlipidemia): Plan: Continue atorvastatin (7) Elevated troponin: Plan: 2nd to myocardial demand ischemia. Troponins stable. no evidence of ACS no chest pain since admission (8) Asthma: Plan: No acute exacerbation suspected prior provider added scheduled bronchodilators - no wheezing on exam today pulmonary toilet (9) Hypothyroidism: Plan: TSH 15.1, free T4 pending Continue Levothyroxine 75 mcg PO daily Plan: VTE Prophylaxis - Lovenox 40mg SQ BID Diet - T2DM Disposition - continued admission due to hypoxia on med/tele Admission and Anticipated Discharge Date Admission Date: February 04, 2021 Subjective Reports feeling much improved since admission. Reports illness started on January 22. Unvaccinated - she "just didn't want to get it". Still with shortness of breath on exertion and productive clear cough. No loss of taste or smell. Significant loss of appetite but she is managing to eat. Having bowel movements without diarrhea. SR - 90s on monitor Review of Systems Review of Systems: All systems reviewed & are unremarkable except as noted in HPI & below Physical Exam Constitutional: WD/WN, vitals as above + obese ENMT: Mouth: + dry oral mucous membranes Neck: trachea midline, no thyromegaly Respiratory: normal respiratory effort; no respiratory distress Auscultation: + diminished lung sounds (throughout) and + crackles (fine bibasal); no rales and no wheezes Cardiovascular: Rate/Rhythm: regular rhythm and + tachycardic Extremities: normal capillary refill and + pedal edema (trace b/l ankles); no calf tenderness Gastrointestinal (Abdomen): normal bowel sounds, soft, nontender, no hepatosplenomegaly Musculoskeletal: no cyanosis or clubbing, extremities motor strength 5/5 Skin: no rashes, warm and dry Neurologic: moves all extremities and awake; not confused Psychiatric: A+Ox3, euthymic affect Results & Data Results & Data ([facility]) Vital Signs (Past 12 Hours) Vital Signs Temp Pulse Pulse Resp BP Pulse Ox 02/06/21 11:13 65 18 91 02/06/21 11:00 36.9 C 73 18 114/68 90 02/06/21 08:00 36.5 C 68 18 99/61 L 92 02/06/21 07:46 65 18 90 02/06/21 07:00 62 02/06/21 03:28 36.5 C 68 20 110/71 94 Medications Administered Active Medications Generic Name Dose Route Start Last Admin Trade Name Freq PRN Reason Stop Dose Admin Albuterol 2 puffs 02/04/21 22:39 Albuterol Hfa 8 Gm Inhaler INH 03/06/21 22:38 Q6 PRN wheeze/sob Albuterol 2 puffs 02/05/21 19:00 02/06/21 14:38 Albuterol Hfa 8 Gm Inhaler INH 03/07/21 18:59 2 puffs QIDR VEL Administration Atorvastatin Calcium 10 mg 02/04/21 22:39 02/05/21 20:41 Atorvastatin 10 Mg Tab PO 03/06/21 22:38 10 mg HS VEL Administration Buspirone HCl 5 mg 02/05/21 00:37 02/05/21 20:41 Buspirone 5 Mg Tab PO 03/07/21 08:59 5 mg TID PRN Administration Anxiety Dextrose 25 - 50 ml 02/04/21 22:39 Dextrose 50% 50 Ml Syringe IV 03/06/21 22:38 UD PRN Hypoglycemia Protocol Protocol Enoxaparin Sodium 40 mg 02/04/21 23:15 02/06/21 08:16 Enoxaparin Inj 40 Mg/0.4 Ml Syr SQ 03/06/21 23:14 40 mg BID VEL Administration Fluticasone/Vilanterol 1 puffs 02/05/21 09:00 02/06/21 08:17 Fluticasone/Vilanterol 200/25mcg 14 Puffs/Inhaler INH 03/07/21 08:59 1 puffs DAILY VEL Administration Glucagon 1 mg 02/04/21 22:39 Glucagon For Inj 1 Mg Vial SQ 03/06/21 22:38 UD PRN Hypoglycemia Protocol Protocol Glucose 4 - 8 tabs 02/04/21 22:39 Glucose 10 Tabs/Tube PO 03/06/21 22:38 UD PRN Hypoglycemia Protocol Protocol Glucose 15 - 30 gm 02/04/21 22:39 Glucose 40% Gel 15 Gm Tube PO 03/06/21 22:38 UD PRN Hypoglycemia Protocol Protocol Dexamethasone 6 mg/ Syringe 1.5 mls @ 1 mls/min 02/05/21 09:00 02/06/21 08:15 IV 02/15/21 08:59 1 mls/min DAILY VEL Administration Insulin Aspart 0 units 02/04/21 23:00 02/06/21 12:30 Insulin Aspart 100 Units/Ml 3 Ml Pen SC 03/06/21 22:59 3 units ACHS VEL Administration Levothyroxine Sodium 75 mcg 02/05/21 06:30 02/06/21 05:39 Levothyroxine Sodium 75 Mcg Tablet PO 03/07/21 06:29 75 mcg DAILYBB VEL Administration Melatonin 3 mg 02/05/21 21:00 02/05/21 20:31 Melatonin 3 Mg Tab PO 03/07/21 20:59 3 mg HS VEL Administration Metoprolol Succinate 25 mg 02/05/21 09:00 02/05/21 08:21 Metoprolol Succ 25mg Ext Rel Tab PO 03/07/21 08:59 25 mg DAILY VEL Administration Miscellaneous 15 - 30 gm 02/04/21 22:39 Carbohydrates For Hypoglycemia PO 03/06/21 22:38 UD PRN Hypoglycemia Protocol Ondansetron HCl 4 mg 02/04/21 22:39 Ondansetron Inj 2 Mg/Ml 2 Ml Vial IV 03/06/21 22:38 Q6H PRN Nausea Pantoprazole Sodium 20 mg 02/04/21 22:39 02/05/21 20:34 Pantoprazole 40 Mg Tab PO 03/06/21 22:38 20 mg HS VEL Administration Potassium Chloride 20 meq 02/06/21 09:00 02/06/21 10:54 Potassium Chloride Crtab 20 Meq Tabcr PO 02/06/21 21:01 20 meq BID VEL Administration Potassium Phosphate 1 tab 02/05/21 21:00 02/06/21 13:00 Pot Phosphate Monobasic W/ Sod Tab PO 03/07/21 20:59 1 tab QID VEL Administration PG Care Time/CCT Total # of Minutes Spent Total Time Spent with Patient: Total time spent is greater than 50% in coordination of care (as documented) at patient's floor/unit and/or counseling patient: Coding Level of Care Code 99773 Subseq Hosp Care Lvl 2 Diagnoses Pneumonia due to COVID-19 virus U07.1; J12.82 Acute respiratory failure with hypoxia J96.01 Hypophosphatemia E83.39 Type 2 diabetes mellitus E11.9 HTN (hypertension) I10 HLD (hyperlipidemia) E78.5 Elevated troponin R77.8 Asthma J45.909 Hypothyroidism E03.9
[2021-02-06 17:29] LABS: T4 Free Thyroxine 0.83 ng/dl (0.8-1.6)
[2021-02-06] MEDS: MELATONIN 3 MG TAB PO SCH (21:04)
[2021-02-06] MEDS: ATORVASTATIN 10 MG TAB PO SCH (21:06)
[2021-02-06] MEDS: busPIRone 5 MG TAB PO PRN (21:07)
[2021-02-06] MEDS: PANTOprazole 40 MG TAB PO SCH (21:08)
[2021-02-07] MEDS: ALBUTEROL HFA 8 GM INHALER INH PRN (04:54)
[2021-02-07] MEDS: LEVOTHYROXINE SODIUM 75 MCG TABLET PO SCH (05:45)
--- NOTE | 2021-02-07 05:53 | Communication Note ---
Date of Service: February 07, 2021 Patient with worsening oxygen saturation overnight. I asked nursing to prone and apply BiPAP. She may now be a candidate for baricitinib as she is becoming hypoxic.
[2021-02-07] MEDS: ALBUTEROL HFA 8 GM INHALER INH SCH ×4 (07:41→20:27)
[2021-02-07 08:01] LABS: BUN Creatinine Ratio 18.6 (10-20); Calcium 8.3 mg/dl (8.5-10.1); Est GFR (African American) 80.5 ml/min; Est GFR (Non-African American) 69.5 ml/min; Potassium 3.3 mmol/L (3.5-5.1)
[2021-02-07 08:04] LABS: Phosphorus 2.9 mg/dl (2.5-4.9)
[2021-02-07] MEDS: dexAMETHasone 6 MG in SYRINGE 0 ML IV SCH (08:13)
[2021-02-07] MEDS: ENOXAPARIN INJ 40 MG/0.4 ML SYR SQ SCH ×2 (08:13→20:51)
[2021-02-07] MEDS: FLUTICASONE/VILANTEROL 200/25MCG 14 PUFFS/INHALER INH SCH (08:13)
[2021-02-07] MEDS: METOPROLOL SUCC 25MG EXT REL TAB PO SCH (08:14)
[2021-02-07] MEDS: MULTIVITAMIN TAB PO SCH (08:14)
[2021-02-07] MEDS: POT PHOSPHATE MONOBASIC W/ SOD TAB PO SCH ×4 (08:14→20:49)
[2021-02-07] MEDS: INSULIN ASPART 100 UNITS/ML 3 ML PEN SC SCH ×4 (08:19→21:23)
--- NOTE | 2021-02-07 08:34 | XRay Report ---
XR chest 1V portable CLINICAL HISTORY: worsening oxygen saturation TECHNIQUE: Single frontal radiograph of the chest was obtained. Comparison: Comparison is made to chest one view 02/04/2021 FINDINGS: No lines and tubes are seen. The cardiomediastinal silhouette is normal. Lungs are underinflated. Mul tifocal airspace opacities are more prominent than prior exam. No evidence of pleural effusion or pne umothorax. IMPRESSION: Interval worsening of multifocal airspace opacities which may reflect multifocal pneumonia with or wi thout proposed atelectasis/aspiration. ACT 112: Negative or not required by law. Electronically signed by: Nito Hurtado M.D. 02/07/2021 8:32 AM
[2021-02-07] MEDS: POTASSIUM CHLORIDE CRTAB 20 MEQ TABCR PO SCH ×2 (08:57→20:48)
--- NOTE | 2021-02-07 16:41 | Hospitalist Progress Note ---
Date of Service February 07, 2021 Assessment & Plan (1) Pneumonia due to COVID-19 virus: Plan: Day #4 dexamethasone 6mg IV daily. Presented well over 10 days into her illness - thus, Remdesivir deferred. DVT proph - Lovenox BID. CRP downtrending - does not meet criteria for baricitinib Proning and side positioning again discussed & encouraged. (2) Acute respiratory failure with hypoxia: Plan: As above. Aim O2 sats > 90%. Concerning increasing O2 requirement but clinically otherwise stable. (3) Type 2 diabetes mellitus: Plan: HbA1C 7.4 metformin on hold - can resume on discharge Novolog SSI (8 units yesterday) (4) Hypophosphatemia: Plan: Resolved (5) HTN (hypertension): Plan: Restarted metoprolol succinate to avoid rebound tachycardia (6) HLD (hyperlipidemia): Plan: Continue atorvastatin (7) Elevated troponin: Plan: 2nd to myocardial demand ischemia. Troponins stable. no evidence of ACS no chest pain since admission (8) Asthma: Plan: No acute exacerbation suspected Continue albuterol as helping with coughing up mucus (9) Hypothyroidism: Plan: TSH 15.1, free T4 WNL Continue Levothyroxine 75 mcg PO daily Plan: VTE Prophylaxis - Lovenox 40mg SQ BID Diet - T2DM Disposition - stable for transfer to med/surg Admission and Anticipated Discharge Date Admission Date: February 04, 2021 Subjective Feels mildly improved from yesterday despite hypoxia overnight requiring BiPAP. No respiratory distress and speaking in full sentences at this time. Eating 50- 65% of meals. Supplemental boost shakes. Difficulty sleeping in current environment. Review of Systems Review of Systems: All systems reviewed & are unremarkable except as noted in HPI & below Physical Exam Constitutional: WD/WN, vitals as above + obese ENMT: Mouth: oral mucous membranes not dry Neck: trachea midline, no thyromegaly Respiratory: normal respiratory effort; no respiratory distress Auscultation: + diminished lung sounds (throughout) and + crackles (fine bibasal); no rales and no wheezes Cardiovascular: Rate/Rhythm: regular rate and regular rhythm Extremities: normal capillary refill and + pedal edema (trace b/l ankles); no calf tenderness Gastrointestinal (Abdomen): normal bowel sounds, soft, nontender, no hepatosplenomegaly Musculoskeletal: no cyanosis or clubbing, extremities motor strength 5/5 Skin: no rashes, warm and dry Neurologic: moves all extremities and awake; not confused Psychiatric: A+Ox3, euthymic affect Results & Data Results & Data ([facility]) Vital Signs (Past 12 Hours) Vital Signs Temp Pulse Resp BP Pulse Ox 02/07/21 15:02 85 18 93 02/07/21 11:57 36.7 C 73 19 104/69 92 02/07/21 10:44 80 16 90 02/07/21 07:46 36.6 C 69 20 131/73 93 02/07/21 07:43 72 18 91 02/07/21 06:06 22 94 02/07/21 04:55 72 18 90 PG Care Time/CCT Total # of Minutes Spent Total Time Spent with Patient: Total time spent is greater than 50% in coordination of care (as documented) at patient's floor/unit and/or counseling patient: Coding Level of Care Code 00330 Subseq Hosp Care Lvl 2 Diagnoses Pneumonia due to COVID-19 virus U07.1; J12.82 Acute respiratory failure with hypoxia J96.01 Type 2 diabetes mellitus E11.9 Hypophosphatemia E83.39 HTN (hypertension) I10 HLD (hyperlipidemia) E78.5 Elevated troponin R77.8 Asthma J45.909 Hypothyroidism E03.9
[2021-02-07] MEDS: MELATONIN 3 MG TAB PO SCH (20:47)
[2021-02-07] MEDS: busPIRone 5 MG TAB PO PRN (20:49)
[2021-02-07] MEDS: PANTOprazole 40 MG TAB PO SCH (20:49)
[2021-02-07] MEDS: ATORVASTATIN 10 MG TAB PO SCH (20:51)
[2021-02-08] MEDS: LEVOTHYROXINE SODIUM 75 MCG TABLET PO SCH (05:30)
[2021-02-08 05:41] LABS: Basophils # (auto) 0.01 K/uL (0-0.2); Basophils % (auto) 0.3 %; Eosinophils # (auto) 0.01 K/uL (0-0.5); Eosinophils % (auto) 0.3 %; Hematocrit (blood only) 32.5 % (37-47); Hemoglobin 10.4 g/dL (12.0-16.0); Immature Granulocytes # (auto) 0.02 K/uL (0.00-0.02); Immature Granulocytes % (auto) 0.6 %; Lymphocytes # (auto) 0.98 K/uL (1.2-3.4); Lymphocytes % (auto) 28.1 %; Mean Corpuscular Hemoglobin 27.8 pg (25-34); Mean Corpuscular Volume 86.9 fL (80-100); Mean Platelet Volume 9.8 fL (7.4-10.4); Monocytes # (auto) 0.23 K/uL (0.11-0.59); Monocytes % (auto) 6.6 %; Neutrophils # (auto) 2.24 K/uL (1.4-6.5); Neutrophils % (auto) 64.1 %; Platelet Count 245 K/uL (130-400); RDW Coefficient of Variation 14.9 % (11.5-14.5); RDW Standard Deviation 47.6 fL (36.4-46.3); Red Blood Count 3.74 M/uL (4.2-5.4); White Blood Count 3.49 K/uL (4.8-10.8)
[2021-02-08 06:56] LABS: BUN Creatinine Ratio 17.6 (10-20); Calcium 8.5 mg/dl (8.5-10.1); Creatinine Clr Calc Pharmacy 83.6 ml/min; Est GFR (African American) 86.3 ml/min; Est GFR (Non-African American) 74.5 ml/min; Potassium 3.3 mmol/L (3.5-5.1)
[2021-02-08] MEDS: ALBUTEROL HFA 8 GM INHALER INH SCH ×2 (07:21→10:20)
[2021-02-08] MEDS: dexAMETHasone 6 MG in SYRINGE 0 ML IV SCH (08:14)
[2021-02-08] MEDS: ENOXAPARIN INJ 40 MG/0.4 ML SYR SQ SCH ×2 (08:14→20:54)
[2021-02-08] MEDS: FLUTICASONE/VILANTEROL 200/25MCG 14 PUFFS/INHALER INH SCH (08:15)
[2021-02-08] MEDS: POT PHOSPHATE MONOBASIC W/ SOD TAB PO SCH ×4 (08:15→20:56)
[2021-02-08] MEDS: METOPROLOL SUCC 25MG EXT REL TAB PO SCH (08:17)
[2021-02-08] MEDS: MULTIVITAMIN TAB PO SCH (08:17)
[2021-02-08] MEDS: INSULIN ASPART 100 UNITS/ML 3 ML PEN SC SCH ×4 (08:26→21:48)
--- NOTE | 2021-02-08 10:23 | Hospitalist Progress Note ---
Date of Service February 08, 2021 Assessment & Plan (1) Pneumonia due to COVID-19 virus: Plan: Day #5 dexamethasone 6mg IV daily. Presented well over 10 days into her illness - thus, Remdesivir deferred. DVT proph - Lovenox BID. CRP downtrending - does not meet criteria for baricitinib Continue to prone as able (2) Acute respiratory failure with hypoxia: Plan: As above. Aim O2 sats > 90%. O2 requirement slowly trending down. (3) Type 2 diabetes mellitus: Plan: HbA1C 7.4 metformin on hold - can resume on discharge Novolog SSI (16 units yesterday), will add insulin NPH to cover dexamethasone (4) Hypophosphatemia: Plan: Resolved (5) HTN (hypertension): Plan: Continue metoprolol succinate to avoid rebound tachycardia (6) HLD (hyperlipidemia): Plan: Continue atorvastatin (7) Elevated troponin: Plan: 2nd to myocardial demand ischemia. Troponins stable. no evidence of ACS no chest pain since admission (8) Asthma: Plan: No acute exacerbation suspected Continue albuterol as helping with coughing up mucus (9) Hypothyroidism: Plan: TSH 15.1, free T4 WNL Continue Levothyroxine 75 mcg PO daily Plan: VTE Prophylaxis - Lovenox 40mg SQ BID Diet - T2DM Disposition - continue on med/surg. Move to 3W if beds available. Admission and Anticipated Discharge Date Admission Date: February 04, 2021 Subjective No respiratory distress and speaking in full sentences. Feels she is slowly improving. Continues to have productive cough. Eating 75% of meals. Supplemental boost shakes. Hypoxia usually worse at night. Updated her daughter over the phone in the room with the patient. Discussed removal of isolation with Linda Mcintosh, unfortunately initial test on Jan 24 cannot be accepted as initial positive test for removal of isolation. Will try to get [facility] results from [place]. Review of Systems Review of Systems: All systems reviewed & are unremarkable except as noted in HPI & below Physical Exam Constitutional: WD/WN, vitals as above + obese ENMT: Mouth: oral mucous membranes not dry Neck: trachea midline, no thyromegaly Respiratory: normal respiratory effort; no respiratory distress Auscultation: + diminished lung sounds (bibasal); no crackles, no rales and no wheezes Cardiovascular: Rate/Rhythm: regular rate and regular rhythm Extremities: normal capillary refill and + pedal edema (trace b/l ankles); no calf tenderness Neurologic: moves all extremities and awake; not confused Psychiatric: A+Ox3, euthymic affect Results & Data Results & Data ([place]) Vital Signs (Past 12 Hours) Vital Signs Temp Pulse Resp BP BP Pulse Ox 02/08/21 10:21 74 18 95 02/08/21 08:31 36.6 C 74 17 99/50 L 90 02/08/21 07:24 66 18 95 02/07/21 23:24 36.6 C 63 18 120/77 90 PG Care Time/CCT Total # of Minutes Spent Total Time Spent with Patient: Total time spent is greater than 50% in coordination of care (as documented) at patient's floor/unit and/or counseling patient: Coding Level of Care Code 08031 Subseq Hosp Care Lvl 2 Diagnoses Pneumonia due to COVID-19 virus U07.1; J12.82 Acute respiratory failure with hypoxia J96.01 Type 2 diabetes mellitus E11.9 Hypophosphatemia E83.39 HTN (hypertension) I10 HLD (hyperlipidemia) E78.5 Elevated troponin R77.8 Asthma J45.909 Hypothyroidism E03.9
[2021-02-08] MEDS: POTASSIUM CHLORIDE CRTAB 20 MEQ TABCR PO SCH ×3 (13:19→20:56)
[2021-02-08] MEDS: ALBUTEROL HFA 8 GM INHALER INH PRN ×2 (15:13→19:33)
[2021-02-08] MEDS: MELATONIN 3 MG TAB PO SCH (20:53)
[2021-02-08] MEDS: ATORVASTATIN 10 MG TAB PO SCH (20:54)
[2021-02-08] MEDS: PANTOprazole 40 MG TAB PO SCH (20:55)
[2021-02-08] MEDS: busPIRone 5 MG TAB PO PRN (20:57)
[2021-02-09] MEDS: LEVOTHYROXINE SODIUM 75 MCG TABLET PO SCH (06:15)
[2021-02-09] MEDS: POT PHOSPHATE MONOBASIC W/ SOD TAB PO SCH ×4 (09:16→21:17)
[2021-02-09] MEDS: MULTIVITAMIN TAB PO SCH (09:17)
[2021-02-09] MEDS: METOPROLOL SUCC 25MG EXT REL TAB PO SCH (09:17)
[2021-02-09] MEDS: POTASSIUM CHLORIDE CRTAB 20 MEQ TABCR PO SCH ×3 (09:17→21:27)
[2021-02-09] MEDS: FLUTICASONE/VILANTEROL 200/25MCG 14 PUFFS/INHALER INH SCH (09:18)
[2021-02-09] MEDS: ENOXAPARIN INJ 40 MG/0.4 ML SYR SQ SCH ×2 (09:19→21:21)
[2021-02-09] MEDS: INSULIN HUMAN NPH SC SCH (09:47)
[2021-02-09] MEDS: INSULIN ASPART 100 UNITS/ML 3 ML PEN SC SCH ×4 (09:51→21:19)
[2021-02-09] MEDS: dexAMETHasone 6 MG in SYRINGE 0 ML IV SCH (10:06)
--- NOTE | 2021-02-09 15:42 | Hospitalist Progress Note ---
Date of Service February 09, 2021 Assessment & Plan (1) Pneumonia due to COVID-19 virus: Plan: Day #6 dexamethasone 6mg IV daily. Presented well over 10 days into her illness - thus, Remdesivir deferred. DVT proph - Lovenox BID. CRP downtrending - does not meet criteria for baricitinib Continue to prone as able (2) Acute respiratory failure with hypoxia: Plan: As above. Aim O2 sats > 90%. O2 requirement slowly trending down. 2 step in AM. Plan on discharge with O2 home if needed. (3) Type 2 diabetes mellitus: Plan: HbA1C 7.4 metformin on hold - can resume on discharge Continue insulin NPH 10 units QAM with Novolog sliding scale (4) Hypophosphatemia: Plan: Resolved (5) HTN (hypertension): Plan: Continue metoprolol succinate to avoid rebound tachycardia (6) HLD (hyperlipidemia): Plan: Continue atorvastatin (7) Elevated troponin: Plan: 2nd to myocardial demand ischemia. Troponins stable. no evidence of ACS no chest pain since admission (8) Asthma: Plan: No acute exacerbation suspected Albuterol switched to PRN (9) Hypothyroidism: Plan: TSH 15.1, free T4 WNL, repeat in 4-6 weeks as outpatient. Continue Levothyroxine 75 mcg PO daily Plan: VTE Prophylaxis - Lovenox 40mg SQ BID Diet - T2DM Disposition - continue on med/surg. 2 step in AM. Possible discharge tomorrow Admission and Anticipated Discharge Date Admission Date: February 04, 2021 Anticipated date of discharge: 02/10/21 Subjective Slowly improving shortness of breath. Now down to 1LPM O2. Eating improved. Feels much better now moved to single room on COVID [place]. now tested positive but stable at home. Updated her daughter (William). Review of Systems Review of Systems: All systems reviewed & are unremarkable except as noted in HPI & below Physical Exam Constitutional: WD/WN, vitals as above + obese ENMT: Mouth: oral mucous membranes not dry Respiratory: normal respiratory effort; no respiratory distress Auscultation: + diminished lung sounds (bibasal); no crackles, no rales and no wheezes Cardiovascular: Rate/Rhythm: regular rate and regular rhythm Extremities: normal capillary refill and + pedal edema (trace b/l ankles); no calf tenderness Gastrointestinal (Abdomen): normal bowel sounds, soft, nontender, no hepatosplenomegaly Musculoskeletal: no cyanosis or clubbing, extremities motor strength 5/5 Skin: no rashes, warm and dry Neurologic: moves all extremities and awake; not confused Psychiatric: A+Ox3, euthymic affect Results & Data Results & Data ([facility]) Vital Signs (Past 12 Hours) Vital Signs Temp Pulse Resp BP BP Pulse Ox 02/09/21 11:52 91 02/09/21 10:13 92 02/09/21 07:48 36.5 C 92 H 18 110/71 91 02/09/21 04:40 36.9 C 77 18 143/84 H 98 PG Care Time/CCT Total # of Minutes Spent Total Time Spent with Patient: Total time spent is greater than 50% in coordination of care (as documented) at patient's floor/unit and/or counseling patient: Coding Level of Care Code 35500 Subseq Hosp Care Lvl 2 Diagnoses Pneumonia due to COVID-19 virus U07.1; J12.82 Acute respiratory failure with hypoxia J96.01 Type 2 diabetes mellitus E11.9 Hypophosphatemia E83.39 HTN (hypertension) I10 HLD (hyperlipidemia) E78.5 Elevated troponin R77.8 Asthma J45.909 Hypothyroidism E03.9
[2021-02-09] MEDS: MELATONIN 3 MG TAB PO SCH (21:16)
[2021-02-09] MEDS: busPIRone 5 MG TAB PO PRN (21:17)
[2021-02-09] MEDS: ATORVASTATIN 10 MG TAB PO SCH (21:18)
[2021-02-09] MEDS: PANTOprazole 40 MG TAB PO SCH (21:18)
[2021-02-10] MEDS: LEVOTHYROXINE SODIUM 75 MCG TABLET PO SCH (05:48)
[2021-02-10 07:24] LABS: BUN Creatinine Ratio 22.5 (10-20); Calcium 9.2 mg/dl (8.5-10.1); Creatinine Clr Calc Pharmacy 69.7 ml/min; Est GFR (African American) 69.2 ml/min; Est GFR (Non-African American) 59.7 ml/min; Phosphorus 4.2 mg/dl (2.5-4.9)
[2021-02-10] MEDS ORDERED: POTASSIUM CHLORIDE CRTAB 20 MEQ TABCR PO SCH (09:00)
[2021-02-10] MEDS: INSULIN ASPART 100 UNITS/ML 3 ML PEN SC SCH ×3 (09:40→18:09)
[2021-02-10] MEDS: INSULIN HUMAN NPH SC SCH (09:44)
[2021-02-10] MEDS: FLUTICASONE/VILANTEROL 200/25MCG 14 PUFFS/INHALER INH SCH (09:45)
[2021-02-10] MEDS: MULTIVITAMIN TAB PO SCH (09:46)
[2021-02-10] MEDS: METOPROLOL SUCC 25MG EXT REL TAB PO SCH (09:46)
[2021-02-10] MEDS: ENOXAPARIN INJ 40 MG/0.4 ML SYR SQ SCH (09:47)
[2021-02-10] MEDS: dexAMETHasone 6 MG in SYRINGE 0 ML IV SCH (09:48)
[2021-02-10 09:53] VITALS: O2SAT 94
--- NOTE | 2021-02-10 15:49 | Discharge Summary ---
Date of Service February 10, 2021 Admission HPI Per Admitting Provider 60 YOF with past medical of: HTN, HLD, DMII, Asthma, previous smoker, hypothyroidism, GERD. Does not routinely seek medical care. Patient comes in today for feeling run down, tired, loss of appetite and myalgias. She also came in as her daughter reports that her home SPO2 monitor was 80% at home. The patient started feeling ill on [id number] and home positive COVID test on [id number]. She is dyspneic with SPO2 89% on room air. She has remained weak and fatigued and decrease appetite for the past week as well as decrease fluid intake. In the ER she had routine labs draw to include troponin I, CXR and CTA of the chest. Which shows bilateral ground glass opacities, no PE. Her labs revealed mild hypokalemia, and an elevated Troponin I of 0.180. ECG without dynamic changes and patient denies any chest pain or palpitations. Patient will be admitted for COVID , continue Decadron, and one liter of LR overnight. Inflammatory markers are pending. Patient is not vaccinated and her COVID test on admission is: POSITIVE Principal Diagnosis COVID-19 pneumonia Discharge Exam Constitutional WD/WN, vitals as above + obese ENMT Mouth: oral mucous membranes not dry Neck trachea midline, no thyromegaly Respiratory normal respiratory effort; no respiratory distress Auscultation: + diminished lung sounds (bibasal); no crackles, no rales and no wheezes Cardiovascular Rate/Rhythm: regular rate and regular rhythm Extremities: normal capillary refill and + pedal edema (trace b/l ankles); no calf tenderness Gastrointestinal (Abdomen) normal bowel sounds, soft, nontender, no hepatosplenomegaly Musculoskeletal no cyanosis or clubbing, extremities motor strength 5/5 Skin no rashes, warm and dry Neurologic moves all extremities and awake; not confused Psychiatric A+Ox3, euthymic affect Discharge Data Allergies Allergy/AdvReac Type Severity Reaction Status Date / Time cobalt Allergy Unknown rash Unverified 02/04/21 18:09 cyanocobalamin (vitamin B12) Allergy Unknown rash Unverified 02/04/21 18:09 nickel Allergy Unknown rash Unverified 02/04/21 18:09 Consultations 02/04/21 19:42 ED Decision to Admit Stat Ordered Studies 02/04/21 18:07 CT angio chest w con Stat CLINICAL HISTORY: Shortness of breath, cough and Covid. Evaluate for pulmonary embolus. COMPARISON STUDY: Chest radiograph performed earlier today. TECHNIQUE: Helical axial images of the chest were obtained following intravenous injection 119 cc Optiray 320 IV. Sagittal and coronal reconstructions were viewed as well as maximal intensity projections on an independent 3-D workstation. Automated exposure control was utilized for the study. A dose lowering technique was utilized adhering to the principles of ALARA. FINDINGS: No pulmonary emboli are identified. There is no thoracic aortic dissection. Mild cardiomegaly is noted. No pericardial effusion is present. There are multiple mildly enlarged mediastinal and bilateral hilar lymph nodes. Moderate multifocal groundglass opacities throughout the lungs are noted. There is subpleural right lower lobe consolidation. Central airways are patent. No pneumothorax or pleural effusion is noted. No acute fracture or suspicious lesion is identified within visualized portions of the bony thorax. No significant abnormalities are identified within visualized portions of the upper abdomen. IMPRESSION: 1. No pulmonary emboli identified. 2. Multifocal groundglass opacities throughout the lungs and subpleural right lower lobe consolidation consistent with viral pneumonia. 3. Mildly enlarged mediastinal and bilateral hilar lymph nodes which are likely reactive. 4. Cardiomegaly. Hospital Course (1) Pneumonia due to COVID-19 virus: Holly Malloy is a 60 year old female admitted to [facility] from February 04 - 2020 due to shortness of breath. She was diagnosed with COVID-19 pneumonia. This gradually improved with dexamethasone and she is now medically stable for discharge. On discharge she is requiring 1 LPM O2 on exertion on discharge therefore steroids will completed for full 10 days. She was also started on potassium supplementation due to this being low. Recommend repeat potassium levels in approximately 1 week. TSH was also elevated during admission however T4 levels were normal. Recommend this is repeated in approximately 6 weeks when fully recovered from COVID-19. (2) Acute respiratory failure with hypoxia: (3) Type 2 diabetes mellitus: (4) Hypophosphatemia: (5) HTN (hypertension): (6) HLD (hyperlipidemia): (7) Elevated troponin: (8) Asthma: (9) Hypothyroidism: Total Time Total Time Spent Total Time Spent (In Minutes): 35 Discharge Plan Discharge Items Patient Disposition: Home - Self-Care Reason For Visit: COVID, FATIGUE, ELEVATED TROPONIN Discharge Diagnosis: COVID-19 pneumonia Activity: Resume your previous activity Non-emergency contact: Primary Care Provider Call non-emergency contact if: you have any medication questions and your symptoms worsen Follow-up/Referrals: Yinka Panchal III, CRNP [Nurse Practitioner] - 02/16/21 3:25 pm (Hospital follow up and to become established with primary care.) Diet: Carb Consistent or DM2 Addtl Attending Provider Instructions: You were admitted to [facility] from February 04 - 2020 due to shortness of breath. You were diagnosed with COVID-19 pneumonia. This gradually improved with steroids and you are now medically stable for discharge. You were determined to need 1 liter/minute oxygen on exertion on discharge. Please follow up with your primary care physician to determine when to stop this. Pending Studies at Discharge: No Stand-Alone Forms: My [facility], Smoking Cessation Medications and DC Order Prescriptions: New dexamethasone 6 mg tablet 6 mg PO DAILY 4 Days Qty: 4 RF: 0 potassium chloride 20 mEq tablet extended release 20 meq PO DAILY 10 Days Qty: 10 RF: 0 Continued fluticasone propion-salmeterol [Advair Diskus] 250-50 mcg/dose Blister With Device 1 inh INHALATION BID RF: 0 levothyroxine [Synthroid] 75 mcg Tablet 75 mcg PO QAM RF: 0 metoprolol succinate 25 mg Tablet Extended Release 24 Hr 25 mg PO DAILY RF: 0 omeprazole 20 mg Tablet,Delayed Release (Dr/Ec) 20 mg PO HS RF: 0 atorvastatin 10 mg Tablet 10 mg PO DAILY RF: 0 furosemide 20 mg Tablet 20 mg PO DAILY PRN (Reason: Leg swelling) RF: 0 metformin 500 mg Tablet Extended Release 24 Hr 1,000 mg PO DAILY RF: 0 Discharge Orders: Discharge Order (Routine); Ordered 02/10/21 Ordered By: Mc Proctor/Other Patient Handouts: A1C, COVID-19 Home Care, High Blood Sugar (Hyperglycemia), Hypoglycemia (Low Blood Sugar), Managing Type 2 Diabetes, Healthy Meals for Diabetes, Diabetes: Meal Planning Admission Data Admit Date/Time: 02/04/21 20:39 Attending Provider: Mc Ch Admit Provider: Curt Julian Primary Care Provider: PCP,NO Other Providers: Curt Julian Other Interventions: Discharge Summary Assessment (RN) Last Done: 02/10/21 17:02 Coding Level of Care Code D/C DAY MANAGEMENT >30 MINS Diagnoses Pneumonia due to COVID-19 virus U07.1; J12.82 Acute respiratory failure with hypoxia J96.01 Type 2 diabetes mellitus E11.9 Hypophosphatemia E83.39 HTN (hypertension) I10 HLD (hyperlipidemia) E78.5 Elevated troponin R77.8 Asthma J45.909 Hypothyroidism E03.9
[2021-02-10 15:57] VITALS: PULSE 72; TEMP 97.7
[2021-02-10 17:03] VITALS: BP 102/61
== END 2021-02-10 19:22 | disposition home or self-care (01) | DRG 177 ==
LOC: ED 16:14 → SUATTDRO 20:39 → 2N 20:39 → 3W 02-09 04:51